=== PATIENT | male | born 1955 | race Two or more races ===

== ENCOUNTER 2018-10-07 13:26 | Inpatient (IN) | payer OTHER ==
[~2018-10-07] VITALS: Ht 167.6 cm; Wt 122.5 kg
--- NOTE | 2018-10-07 13:28 | NUR ---
[id number], HYPOTENSION 82/32, NS 100ML INFUSED, DENIES PAIN, -SOB, TO ER BED 4, CHANGED TO GOWN, HOOKED TO MONITOR, AWAITING MD DELGADO
--- NOTE | 2018-10-07 13:32 | NUR ---
DAVID TORRES AT BEDSIDE
[2018-10-07] MEDS ORDERED: IV NS 0.9% 1,000 ML BAG IV ONE ×2 (14:00→18:00)
[2018-10-07 14:01] LABS: BASOPHILS % (AUTO) 0.3 % (0.0-2.0); EOSINOPHILS % (AUTO) 1.4 % (0.0-6.0); HEMATOCRIT 36 % (39-51); HEMOGLOBIN 11.7 g/dL (13.5-17.5); LYMPHOCYTES # (AUTO) 1.5 /CMM (0.8-4.8); LYMPHOCYTES % (AUTO) 19.5 % (20.0-44.0); MEAN CORPUSCULAR HGB CONC 32 g/dl (31.0-36.0); MEAN CORPUSCULAR VOLUME 78 fL (80-96); MONOCYTES # (AUTO) 0.5 /CMM (0.1-1.30); MONOCYTES % (AUTO) 5.9 % (2.0-12.0); NEUTROPHILS # (AUTO) 5.7 /CMM (1.8-8.9); NEUTROPHILS % (AUTO) 72.9 % (43.0-81.0); PLATELET COUNT (AUTO) 229 /CMM (150-450); RED BLOOD CELL COUNT(AUTO) 4.65 MIL/uL (4.5-6.0); WHITE BLOOD COUNT (AUTO) 7.8 K/uL (4.3-11.0)
[2018-10-07 14:12] LABS: CALCIUM, SERUM 8.7 mg/dL (8.5-10.1); CARBON DIOXIDE 30 mmol/L (21-32); CHLORIDE 104 mmol/L (98-107); CREATININE 1.3 mg/dL (0.6-1.3); GLUCOSE 155 mg/dL (74-106); POTASSIUM 4.7 mmol/L (3.5-5.1); SODIUM SERUM 140 mmol/L (136-145); UREA NITROGEN, BLOOD 22 mg/dL (7-18)
[2018-10-07 14:18] LABS: ALANINE AMINOTRANSFERASE 23 U/L (12-78); ALBUMIN 3.3 g/dL (3.4-5.0); ALKALINE PHOSPHATASE 57 U/L (46-116); ASPARTATE AMINOTRANSFERASE 13 U/L (15-37); BILIRUBIN,DIRECT 0.1 mg/dL (0.0-0.2); BILIRUBIN,TOTAL 0.2 mg/dL (0.2-1.0); TOTAL PROTEIN, SERUM 6.8 g/dL (6.4-8.2)
--- NOTE | 2018-10-07 15:29 | NUR ---
ROOM 109
--- NOTE | 2018-10-07 16:24 | NUR ---
CALLED [employer] [facility] COUNSELOR WAS PAGED.
[2018-10-07] MEDS ORDERED: ASPIRIN 325 MG TABLET ONE (16:26)
--- NOTE | 2018-10-07 16:29 | NUR ---
PROVIDED PT W SANDWICH AND FLUIDS. TOLERATING PO WELL.
[2018-10-07] MEDS ORDERED: ASPIRIN 325 MG TABLET PO ONE (16:30)
--- NOTE | 2018-10-07 16:53 | NUR ---
RN NOTES RECEIVED REPORT FROM RADHA SNYDER FOR PATIENT COMING IN DUE TO HYPOTENSION UNDER THE SERVICE OF DR. MARTINS WITH TELEMETRY ACUITY. ROOM PREPARED. BED ZERO-ED OUT. AWAITING PATIENT ARRIVAL TO THE UNIT
--- NOTE | 2018-10-07 16:53 | NUR ---
REPORT GIVEN TO MYAH RN FOR ROBINSON
[2018-10-07] MEDS ORDERED: ZOLPIDEM TARTRATE 5 MG TABLET PO PRN (17:30)
[2018-10-07] MEDS ORDERED: MAG HYDROX/AL HYDROX/SIMETH 30 ML UDC PO PRN (17:30)
[2018-10-07] MEDS ORDERED: MAGNESIUM HYDROXIDE 30 ML UDC PO PRN (17:30)
[2018-10-07] MEDS ORDERED: ACETAMINOPHEN 325 MG TABLET PO PRN (17:30)
[2018-10-07] MEDS ORDERED: ONDANSETRON HCL/PF 4 MG/2 ML VIAL IVP PRN (17:30)
[2018-10-07] MEDS ORDERED: Z GUARD REMEDY 2 OZ OINT TP PRN (17:30)
--- NOTE | 2018-10-07 17:32 | NUR ---
RECEIVED VERBAL ORDER OF SODIUM CHLORIDE 0.9% 1L FROM DR NOVOA.
--- NOTE | 2018-10-07 17:50 | NUR ---
RN NOTES PATIENT CAME IN VIA GINO A&Ox. ON ROOM AIR NO SOB. BREATHING EVEN AND UNLABORED. AMBULATORY. SKIN ASSESSMENT DONE- SKIN NOTED TO BE INTACT.EDEMA ON BOTH LEGS. IV ON LHAND G #18: INTACT PATENT UPON FLUSHING. WITH ONGOING NS WIDE OPEN- STARTED AT ER FOR BLOOD PRESSURE SUPPORT. WILL FINISH ADMINISTRATION. PATIENT ORIENTED TO THE UNIT AND THE USE OF CALL LIGHT. AWAITING NEW ORDERS FROM DR. MARTINS. WILL CONTINUE TO MONITOR CLOSELY.
--- NOTE | 2018-10-07 17:56 | NUR ---
RT NOTE: EKG NOT DONE BY RT BECAUSE PATIENT IS STILL IN ER AT THIS TIME.
[2018-10-07 18:02] LABS: APPEARANCE,URINE Clear (CLEAR); BILIRUBIN,URINE Negative (NEGATIVE); BLOOD, URINE Negative Ery/uL (NEGATIVE); COLOR,URINE Yellow (YELLOW); KETONES,URINE Negative (NEGATIVE); LEUKOCYTE ESTERASE ,URINE Negative (NEGATIVE); NITRITE, URINE Negative (NEGATIVE); PH,URINE 5.5 (5.0-8.0); PROTEIN,URINE Negative (NEGATIVE); UGLUCOSE Negative (NEGATIVE); UROBILINOGEN,URINE 0.2 EU/dL (0.2)
[2018-10-07 18:34] VITALS: BP 94/42
--- NOTE | 2018-10-07 19:20 | NUR ---
TELE/RN INITIAL NOTES RECEIVED PT IN BED, A/OX4. SR HR 70S ON TELE. NO C/O PAIN AT THIS TIME. ON ROOM AIR, NO SOB NOTED. WITH ONGOING IVF NS OPEN WIDE INFUSING WELL ON LHAND G20 IV. HOB ELEVATED. SAFETY MEASURES IN PLACED. CALL LIGHT WITHIN EASY REACH. WILL CONT TO MONITOR
--- NOTE | 2018-10-07 19:44 | NUR ---
RN NOTES ENDORSED PATIENT FOR CONTINUITY OF CARE AND CONTINUATION OF ADMISSION PROCESS TO INCOMING NURSE. PATIENT ON STABLE CONDITION. NO ACUTE CHANGES SINCE TRANSFER TO THE UNIT
[2018-10-07 20:00] VITALS: BP 119/72
[2018-10-07] MEDS: ENOXAPARIN SODIUM 40 MG/0.4 ML DISP.SYRIN SQ SCH (21:20)
[2018-10-07] MEDS: IV NS 0.9% 1,000 ML IV PRN (21:50)
[2018-10-07] MEDS ORDERED: METF-440 PO (23:50)
[2018-10-07] MEDS ORDERED: LOSA50TA39 PO (23:50)
[2018-10-07] MEDS ORDERED: METO25TA3 PO (23:50)
[2018-10-07] MEDS ORDERED: MAGN400T6 PO (23:50)
[2018-10-07] MEDS ORDERED: FOLI1TAB16 PO (23:50)
[2018-10-07] MEDS ORDERED: ISOS60TA4 PO (23:50)
[2018-10-07] MEDS ORDERED: CAPT25TA3 PO (23:50)
[2018-10-07] MEDS ORDERED: PANT40TA2 PO (23:50)
[2018-10-07] MEDS ORDERED: CHOL200026 PO (23:50)
[2018-10-07] MEDS ORDERED: AMLO5TAB9 PO (23:50)
[2018-10-07] MEDS ORDERED: MELO-107 PO (23:50)
[2018-10-07] MEDS ORDERED: ASPI-605 PO (23:50)
[2018-10-07] MEDS ORDERED: FINA5TAB3 PO (23:50)
[2018-10-07] MEDS ORDERED: HYDR-3974 PO (23:50)
[2018-10-07] MEDS ORDERED: GABA300C PO (23:50)
[2018-10-07] MEDS ORDERED: TADA5TAB2 PO (23:50)
[2018-10-07] MEDS ORDERED: ATOR40TA PO (23:50)
[2018-10-07] MEDS ORDERED: TAMS0.4C34 PO (23:50)
[2018-10-07] MEDS ORDERED: AMMO385C4 TP (23:50)
[2018-10-07] MEDS ORDERED: FURO40TA5 PO (23:50)
[2018-10-07] MEDS ORDERED: CLOP75TA15 PO (23:50)
[2018-10-07] MEDS ORDERED: NAPR-1143 PO (23:50)
[2018-10-07] MEDS ORDERED: FLUO40CA49 PO (23:50)
[2018-10-07] MEDS ORDERED: LIDO28.310 TP (23:50)
[2018-10-07] MEDS ORDERED: BLOO-140 IN (23:57)
[2018-10-07] MEDS ORDERED: DICL100G16 TP (23:57)
[2018-10-08] VITALS (7 sets, daily range): BP systolic 108–152; BP diastolic 64–103
[2018-10-08 06:18] LABS: BASOPHILS % (AUTO) 0.3 % (0.0-2.0); EOSINOPHILS % (AUTO) 2.7 % (0.0-6.0); HEMATOCRIT 36 % (39-51); HEMOGLOBIN 11.5 g/dL (13.5-17.5); LYMPHOCYTES # (AUTO) 2.5 /CMM (0.8-4.8); LYMPHOCYTES % (AUTO) 29.8 % (20.0-44.0); MEAN CORPUSCULAR HGB CONC 32 g/dl (31.0-36.0); MEAN CORPUSCULAR VOLUME 78 fL (80-96); MONOCYTES # (AUTO) 0.6 /CMM (0.1-1.30); MONOCYTES % (AUTO) 7.3 % (2.0-12.0); NEUTROPHILS # (AUTO) 4.9 /CMM (1.8-8.9); NEUTROPHILS % (AUTO) 59.9 % (43.0-81.0); PLATELET COUNT (AUTO) 223 /CMM (150-450); RED BLOOD CELL COUNT(AUTO) 4.61 MIL/uL (4.5-6.0); WHITE BLOOD COUNT (AUTO) 8.2 K/uL (4.3-11.0)
[2018-10-08 06:42] LABS: ALBUMIN 3.2 g/dL (3.4-5.0); BILIRUBIN,TOTAL 0.2 mg/dL (0.2-1.0); CALCIUM, SERUM 8.4 mg/dL (8.5-10.1); CREATININE 0.9 mg/dL (0.6-1.3); MAGNESIUM 1.9 mg/dL (1.8-2.4); PHOSPHORUS 3.9 mg/dL (2.5-4.9); POTASSIUM 4.1 mmol/L (3.5-5.1); TOTAL PROTEIN, SERUM 6.7 g/dL (6.4-8.2)
[2018-10-08 06:46] LABS: THYROID STIMULATING HORMONE 0.869 uIU/mL (0.358-3.74)
--- NOTE | 2018-10-08 06:53 | NUR ---
RN NOTES PT IN STABLE CONDITION. NO ACUTE CHANGES THROUGHOUT SHIFT. ALL NEEDS ANTICIPATED. SAFETY MEASURES OBSERVED AT ALL TIMES. ENDORSED TO AM SHIFT RN FOR ROBINSON
--- NOTE | 2018-10-08 07:30 | NUR ---
PERFORMANCE CONSULTANT OPENING NOTES RECEIVED PATIENT IN BED SLEEPING. ABLE TO AROUSE WITH VOICE AND TOUCH. A/O X4 PLEASANT WELL NOURISHED MAN. SINUS TACHY 106 ON MONITOR. ABLE TO AMBULATE IN ROOM WITH ASSISTANCE. SKIN INTACT (L) HAND #20 GAUGE RUNNING NS @ 75ML/HR. NO SIGNS OR SYMPTOMS OF RESPIRATORY DISTRESS OR ACUTE PAIN NOTED AT THIS TIME SAFETY PRECAUTIONS IN PLACE BED IN LOW POSITION CALL LIGHT WITHIN REACH
[2018-10-08] MEDS: HYDROCODONE/APAP 5/325MG 1 EACH TABLET PO PRN ×3 (10:03→22:36)
[2018-10-08] MEDS: ASPIRIN 81 MG TAB.CHEW PO SCH (11:21)
[2018-10-08] MEDS: BLOOD SUGAR DIAGNOSTIC 1 EACH STRIP IN SCH ×2 (12:00→17:33)
[2018-10-08] MEDS ORDERED: HOME MED - VOLTAREN GEL TP SCH (12:00)
[2018-10-08] MEDS ORDERED: DEXTROSE 50%-WATER 50 ML DISP.SYRIN IV PRN (12:00)
[2018-10-08] MEDS ORDERED: HYDROCODONE/APAP 5/325MG 1 EACH TABLET PO PRN (12:00)
[2018-10-08] MEDS ORDERED: INSULIN REGULAR, HUMAN 100 UNIT/ML 3 ML VIAL SQ PRN (12:00)
[2018-10-08] MEDS: GABAPENTIN 300 MG CAPSULE PO SCH ×2 (12:11→17:21)
[2018-10-08] MEDS: CHOLECALCIFEROL 1,000 UNIT TABLET (VIT D3) PO SCH (12:11)
[2018-10-08] MEDS ORDERED: Medication Not On Formulary EA (Blood Sugar Diagnostic, Drum (Accu-Chek Compact) 1 EACH) IN SCH (13:00)
--- NOTE | 2018-10-08 15:20 | NUR ---
RN MS NOTES PATIENT INSISTS ON LEAVING STATING HE IS BORED AND MD TOLD HIM HE COULD LEAVE. SPOKE WITH DR PAGAN AND PATIENT HAS NO ORDERS TO BE DISCHARGE POSSIBLY TOMORROW. CONTACTED SISTER PRASAD PER PATIENT AND SHE EXPLAINED PATIENT IS TO STAY HERE MD ORDERED. PATIENT IS CONFUSED AND NO ONE IS HOME TO TAKE CARE OF HIM.
[2018-10-08] MEDS: FOLIC ACID 1 MG TABLET PO SCH (17:21)
--- NOTE | 2018-10-08 19:00 | NUR ---
RECIEVED ALERT AND ORIENTATED AND TALKATIVE. TALKSABOUT HIS HEALTH AND ARTHRITIS. REVIWED THR CALL LIGHT TO CALL THE NURSE AND NOT TO GET OOB WITH HER TO HELP. HS SNACK SERVED PER HIS REQUEST CONSUMED 100% RIGHT KNEE WITH ARTHRITIS
--- NOTE | 2018-10-08 19:22 | NUR ---
RN MS CLOSING NOTES PT RESTING COMFORTABLY IN BED. NO ACUTE CHANGES NOTED THROUGHOUT THE SHIFT. SAFETY MEASURES OBSERVED AT ALL TIMES PATIENT NEEDS REORIENTATION PERIODICALLY IVF RUNNING NS ML/HR TO (L) HAND # GAUGE RUNNING. ENDORSED TO SHIFT RN FOR ROBINSON
[2018-10-08] MEDS: ENOXAPARIN SODIUM 40 MG/0.4 ML DISP.SYRIN SQ SCH (20:58)
[2018-10-09] MEDS: BLOOD SUGAR DIAGNOSTIC 1 EACH STRIP IN SCH ×3 (00:26→12:09)
[2018-10-09] MEDS: IV NS 0.9% 1,000 ML IV PRN (00:28)
[2018-10-09 04:00] VITALS: BP 132/59
[2018-10-09 04:08] VITALS: BP 132/59
[2018-10-09 05:00] VITALS: BP 132/59
--- NOTE | 2018-10-09 05:29 | NUR ---
ENDING NOTES: SLEPT ON AND OFF THRU THE NIGHT. ALERT AND ORIETATED. ENJOYS CONVERSATION TALKATIVE. CHEERFUL LEGS EDEMATOUS RIGHT MORE SO THAN LEFT. HE AMBULATES SLOWLY AND CAREFULLY. RESTARTED IV SITE LEFT ARM NOT TO KEEP BOTHERING HIM WHEN WOULD BEND HIS HND AND STOP THE FLOW. MEDICATED X1 @ 2100 FOR RIGHT LEG PAIN AND EFFECTIVE. BLOOD PRESSURE 132/59.
[2018-10-09 06:15] LABS: BASOPHILS % (AUTO) 0.3 % (0.0-2.0); EOSINOPHILS % (AUTO) 3.2 % (0.0-6.0); HEMATOCRIT 38 % (39-51); HEMOGLOBIN 11.9 g/dL (13.5-17.5); LYMPHOCYTES # (AUTO) 2.8 /CMM (0.8-4.8); LYMPHOCYTES % (AUTO) 34.3 % (20.0-44.0); MEAN CORPUSCULAR HGB CONC 31 g/dl (31.0-36.0); MEAN CORPUSCULAR VOLUME 78 fL (80-96); MONOCYTES # (AUTO) 0.5 /CMM (0.1-1.30); MONOCYTES % (AUTO) 6.4 % (2.0-12.0); NEUTROPHILS # (AUTO) 4.5 /CMM (1.8-8.9); NEUTROPHILS % (AUTO) 55.8 % (43.0-81.0); PLATELET COUNT (AUTO) 217 /CMM (150-450); RED BLOOD CELL COUNT(AUTO) 4.87 MIL/uL (4.5-6.0)
[2018-10-09 06:25] LABS: CALCIUM, SERUM 8.4 mg/dL (8.5-10.1); CREATININE 0.9 mg/dL (0.6-1.3)
--- NOTE | 2018-10-09 07:30 | NUR ---
RN NOTES RECEIVED PT IN BED, A/OX4. ABLE RO MAKE NEEDS KNOWN. NO C/O PAIN AT THIS TIME. ON ROOM AIR, BREATHING UNLABORED, NO SOB NOTED. IV LINE ON THE L FOREARM G 22: INPLACE AND INTACT. NS INFUSING WELL AT 75CC/HR. AMBULATORY. SAFETY MEASURES OBSERVED AND IN PLACED. CALL LIGHT WITHIN EASY REACH. WILL CONT TO MONITOR
[2018-10-09 08:00] VITALS: BP 136/90
[2018-10-09] MEDS: HYDROCODONE/APAP 5/325MG 1 EACH TABLET PO PRN ×2 (08:43→13:59)
[2018-10-09] MEDS: FOLIC ACID 1 MG TABLET PO SCH (08:43)
[2018-10-09] MEDS: ASPIRIN 81 MG TAB.CHEW PO SCH (08:44)
[2018-10-09] MEDS: CHOLECALCIFEROL 1,000 UNIT TABLET (VIT D3) PO SCH (08:44)
[2018-10-09] MEDS: GABAPENTIN 300 MG CAPSULE PO SCH ×2 (08:44→13:09)
[2018-10-09] MEDS ORDERED: FINASTERIDE (5 MG) 5 MG TABLET PO SCH (09:00)
[2018-10-09] MEDS ORDERED: ASPIRIN EC 81 MG TABLET.DR PO SCH (09:00)
[2018-10-09] MEDS ORDERED: AMLODIPINE BESYLATE 5 MG TABLET PO SCH (09:00)
[2018-10-09] MEDS ORDERED: MAGNESIUM OXIDE 400 MG TABLET PO SCH (09:00)
[2018-10-09] MEDS ORDERED: FLUOXETINE HCL 20 MG CAPSULE PO SCH (09:00)
[2018-10-09] MEDS ORDERED: TAMSULOSIN 0.4 MG CAP.SR.24H PO SCH (09:00)
[2018-10-09] MEDS ORDERED: ATORVASTATIN 40 MG TABLET PO SCH (09:00)
[2018-10-09] MEDS ORDERED: PANTOPRAZOLE 40 MG TABLET.DR PO SCH (09:00)
--- NOTE | 2018-10-09 10:00 | NUR ---
RN NOTES ENDORSED PATIENT FOR CONTINUITY OF CARE. NOT ON ANY FORM OF DISTRESS. ALL NURSING NEEDS SO FAR ARE ATTENDED AND MET.SAFETY MEASURES IN PLACE. CALL LIGHT WITHIN REACH
[2018-10-09 13:00] VITALS: BP 136/90
--- NOTE | 2018-10-09 16:00 | NUR ---
PT CLEARED BY FOR D/C TO HOME. PT A/O X 4 , ON ROOM AIR WITH NO DISTRESS NOTED. PT RECEIVED D/C TEACHING AND INSTRUCTIONS, VERBALIZED UNDERSTANDING AND WILL F/U WITH PCP IN ONE WEEK DIRECTED. PT WILL TAKE MEDS DIRECTED. ALL BELONGINGS RETURNED TO PATIENT INCLUDING HOME MEDS, LIST SIGHED. IV ASSESS AND ID BAND REMOVED. PT SAFELY TRANSFERRED PRIVET CAR WITH SISTER.
== END 2018-10-09 18:01 | disposition home or self-care (01) | DRG 48 ==
LOC: ER 13:28 → TELE1 16:44 → MEDSG1 10-08 10:14
PROVIDERS: ADMIT Internal Medicine; ATTEND Family Medicine
DX: G90.8 Other disorders of autonomic nervous system (principal); N17.0 Acute kidney failure with tubular necrosis; E43 Unspecified severe protein-calorie malnutrition; I95.9 Hypotension, unspecified; E87.2 Acidosis; E66.01 Morbid (severe) obesity due to excess calories; Z68.41 Body mass index [BMI] 40.0-44.9, adult; E11.9 Type 2 diabetes mellitus without complications; E78.5 Hyperlipidemia, unspecified; I25.10 Atherosclerotic heart disease of native coronary artery without angina pectoris; Z79.84 Long term (current) use of oral hypoglycemic drugs; I10 Essential (primary) hypertension; Z95.1 Presence of aortocoronary bypass graft
CPT/HCPCS: 36415; 70450-TC; 71045-TC; 80048-TC; 80053-TC; 80061-TC; 80076-TC; 81000-TC; 82962-TC; 83605-TC; 83735-TC; 83880; 84100-TC; 84443-TC; 84484-TC; 85025-TC; 85730-TC; 87040-TC; 87086-TC; 93307-TC; G0378; J1650; J1815; J7030